=== PATIENT | female | born 1985 | race African-American/Black ===

== ENCOUNTER 2019-11-21 23:28 | Emergency (ER) | payer MEDICAID ==
[~2019-11-21] VITALS: Ht 172.7 cm; Wt 64.0 kg
[2019-11-22] MEDS ORDERED: DIVALPROEX SODIUM 250MG ER TABLET PO ONE (01:30)
[2019-11-22] MEDS ORDERED: LEVETIRACETAM 500MG/5ML CUP PO ONE (01:30)
[2019-11-22] MEDS ORDERED: LAMOTRIGINE 25MG TABLET PO SCH (01:30)
[2019-11-22 14:12] VITALS: BP 124/75
== END 2019-11-22 14:43 | disposition home or self-care (01) ==
LOC: ER 23:28
DX: G40.909 Epilepsy, unspecified, not intractable, without status epilepticus (principal); R03.0 Elevated blood-pressure reading, without diagnosis of hypertension
CPT/HCPCS: 99284; Z7610